=== PATIENT | female | born 2000 | race Caucasian/White ===

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

== ENCOUNTER 2020-12-10 01:56 | Emergency (ER) | payer SELFPAY ==
[~2020-12-10] VITALS: Ht 167.7 cm; Wt 102.1 kg
[2020-12-10] MEDS ORDERED: methylPREDNISolone 125 MG (Solu-MEDROL) VIAL IV STA (02:15)
[2020-12-10] MEDS ORDERED: diphenhydrAMINE 50 MG/ML INJ (BENADRYL) IV STA (02:15)
[2020-12-10] MEDS ORDERED: FAMOTIDINE 20MG/2ML IV (PEPCID) IV STA (02:15)
--- NOTE | 2020-12-10 02:24 | ED General ---
General Stated Complaint: ALLERGIC RXN,TROUBLE BREATHING Source of Information: Patient, Family (MOM) History of Present Illness Date Seen by Provider: Dec 10, 2020 Time Seen by Provider: 02:08 Initial Comments PT ARRIVES VIA POV FROM HOME WITH MOM PT STATES SHE HAS BEEN HAVING HIVES SINCE Monday12/08/20 WENT TO [facility] Monday AND WAS PRESCRIBED STEROIDS, BUT PT DID NOT TAKE THEM, BECAUSE SHE KNEW THEY WOULD KEEP HER AWAKE STATES SHE TOOK 2 BENADRYL YESTERDAY, BUT VOMITED THEM UP--STATES IT FELT LIKE SOMETHING WAS IN HER THROAT, WAS NOT ACTUALLY NAUSEATED. SHE TOOK 2 BENADRYL AT 0145, THEN CAME HERE IS FEELING SHORT OF BREATH, BUT PT IS HYPERVENTILATING AND ADMITS TO HAVING "SEVERE ANXIETY" AND C/O TINGLING IN HER HANDS AND FEET HAD SOME SWELLING TO HER LOWER LIP, BUT IS BETTER NOW. NO HISTORY OF SIMILAR DENIES ANY NEW FOODS, MEDICATIONS, PRODUCTS OR EXPOSURES DENIES ANY NEW STRESSORS/INCREASED ANXIETY PRIOR TO ONSET OF HIVES. PCP: KRISTIE DESIR TORCHIA Allergies and Home Medications Allergies Uncoded Allergies: UNKNOWN ABX (Allergy, Intermediate, 01/08/15) Patient Home Medication List Home Medication List Reviewed: Yes Review of Systems Review of Systems Constitutional: no symptoms reported EENTM: see HPI Respiratory: see HPI Cardiovascular: no symptoms reported Gastrointestinal: see HPI Genitourinary: no symptoms reported Musculoskeletal: no symptoms reported Skin: see HPI, pruritus, rash Psychiatric/Neurological: See HPI, Anxiety, Paresthesia Hematologic/Lymphatic: No Symptoms Reported Immunological/Allergic: no symptoms reported Past [place]-Cimplp-Nbwtla Hx Seasonal Allergies Seasonal Allergies: No Past Medical History Surgeries: Yes Adenoidectomy, Tonsillectomy Respiratory: No Cardiac: No Neurological: No Female Reproductive Disorders: Denies Genitourinary: No Gastrointestinal: No Musculoskeletal: No Endocrine: No HEENT: Yes (S/P T&A) Tonsilitis Cancer: No Psychosocial: Yes Anxiety Integumentary: No Blood Disorders: No Physical Exam Vital Signs Vital Signs - First Documented 12/10/20 02:05 Temp 36.6 Pulse 93 Resp 35 B/P (MAP) 117/76 (90) Pulse Ox 100 O2 Delivery Room Air Capillary Refill : Height, Weight, BMI Height: 5'6.00" Weight: 160lbs. 0.0oz. 72.733153bx; 25.8 BMI Method:Stated General Appearance: WD/WN, Anxious HEENT: PERRL/EOMI, TMs Normal, Normal ENT Inspection, Pharynx Normal, Other (MILD SWELLING OF LOWER LIP. NO INTRAORAL SWELLING OR LESIONS) Neck: Normal Inspection Respiratory: Normal Breath Sounds, No Accessory Muscle Use, Other (HYPERVENTILATING, BUT SMILING. ) Cardiovascular: Regular Rate, Rhythm, No Edema, No JVD, No Murmur, Normal Peripheral Pulses Gastrointestinal: Soft Extremity: Normal Inspection, No Pedal Edema Neurologic/Psychiatric: Alert, Oriented x3, No Motor/Sensory Deficits, reel slitter II- XII Norm as Tested, Other (ANXIOUS) Skin: Warm/Dry, Rash (PATCHY URTICARIA SCATTERED OVER MOST OF BODY INCLUDING SCALP, PALMS AND SOLES. ) Progress/Results/Core Measures Suspected Sepsis SIRS Temperature: Pulse: Respiratory Rate: Blood Pressure / Mean: Results/Orders My Orders Orders - OLIVIA FUENTES DO Ed Iv/Invasive Line Start (12/10/20 02:15) Monitor-Rhythm Ecg Trace Only (12/10/20 02:15) Diphenhydramine Injection (Benadryl Inje (12/10/20 02:15) Methylprednisolone Sod Succ (Solu-Medrol (12/10/20 02:15) Famotidine Injection (Pepcid Injection) (12/10/20 02:15) Vital Signs/I&O 12/10/20 02:05 Temp 36.6 Pulse 93 Resp 35 B/P (MAP) 117/76 (90) Pulse Ox 100 O2 Delivery Room Air Capillary Refill : Progress Note : Progress Note GIVEN SOLU-MEDROL, BENADRYL AND PEPCID WITH IMPROVEMENT IN SYMPTOMS PT IS NO LONGER HYPERVENTILATING, PT IS RESTING QUIETLY HIVES ARE FADING AND ITCHING HAS RESOLVED NO DETERIORATION IN PT'S CONDITION Departure Impression Primary Impression: Hives of unknown origin Disposition: 01 HOME, SELF-CARE Condition: Improved Departure-Patient Inst. Decision time for Depature: 03:20 Referrals: DEANN ALVARADO MD (PCP/Family) Primary Care Physician [facility] Patient Instructions: Hives (DC) Add. Discharge Instructions: LOTS OF CLEAR LIQUIDS TAKE BENADRYL 50 MG EVERY 4 HOURS NEEDED YOU MAY TAKE TYLENOL AND MOTRIN NEEDED FOR DISCOMFORT TAKE PREDNISONE PRESCRIBED FOLLOW UP WITH [facility] TOMORROW IF NO BETTER, RETURN TO ER IF WORSE OLIVIA FUENTES DO Dec 10, 2020 02:23
[2020-12-10 03:35] VITALS: BP 117/77
== END 2020-12-10 03:35 | disposition home or self-care (01) ==
LOC: EDUNIT# 01:56 → ER 01:58
DX: L50.9 Urticaria, unspecified (principal)
CPT/HCPCS: 93041

== ENCOUNTER → 2022-12-29 | Outpatient (CLI) | payer OTHER ==
--- NOTE | 2022-12-29 10:29 | Diagnostic Imaging Report ---
Clinical Indication: Patient having new onset headaches. Patient is 20 weeks . Exam: MRI of the brain performed without IV contrast. Sequences include axial DWI, ADC map, axial T1, axial T2, axial FLAIR, coronal gradient echo, and sagittal T1. Comparison: Head CT without contrast dated 01/08/2015. Findings: There is motion artifact limiting evaluation of the brain parenchyma. 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 Otherwise, there is no evidence of acute cerebral infarct, intracranial hemorrhage, or gross mass effect. The brain parenchymal volume appears appropriate for patient's age. There is normal alexis-white matter distinction. There is no significant midline shift or herniation. Visualized [place] vascular structures are unremarkable. The pituitary gland, sella, and suprasellar regions are unremarkable as visualized. There is no evidence of hydrocephalus. The basal cisterns are unremarkable. The skull, extracranial soft tissue, and orbits are unremarkable. There is mild mucosal thickening involving both maxillary sinuses. Temporal bones show no significant abnormality. IMPRESSION: 1: There is no evidence of acute intracranial process. 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 Nonemergent MRI of the pineal gland with and without contrast is suggested for further evaluation. 3: The brain parenchyma is otherwise unremarkable. 4: There is mild paranasal sinus disease. Dictated by: Dictated on workstation # [id number]
== END ==
LOC: RAD 09:14
PROVIDERS: ATTEND Family Medicine
DX: O99.282 Endocrine, nutritional and metabolic diseases complicating pregnancy, second trimester (principal); O99.512 Diseases of the respiratory system complicating pregnancy, second trimester; O26.892 Other specified pregnancy related conditions, second trimester; Z3A.21 21 weeks gestation of pregnancy; R51.9 Headache, unspecified; R20.2 Paresthesia of skin; J32.9 Chronic sinusitis, unspecified
CPT/HCPCS: 70551

== ENCOUNTER 2023-02-23 16:41 | Outpatient (CLI) | payer OTHER ==
[~2023-02-23] VITALS: Ht 165.1 cm; Wt 113.8 kg
[2023-02-23 17:02] VITALS: BP 119/75
[2023-02-23] MEDS ORDERED: PNV-9 PO (17:20)
[2023-02-23] MEDS ORDERED: FLUO10CA29 PO (17:21)
[2023-02-23 17:32] LABS: CLARITY,URINE CLEAR; COLOR,URINE YELLOW
[2023-02-23 17:33] LABS: BACTERIA,URINE TRACE /HPF; BILIRUBIN,URINE NEGATIVE (NEGATIVE); GLUCOSE, URINE (UA) NEGATIVE (NEGATIVE); KETONES,URINE NEGATIVE (NEGATIVE); LEUKOCYTE ESTERASE ,URINE NEGATIVE (NEGATIVE); NITRITE,URINE NEGATIVE (NEGATIVE); PROTEIN,URINE NEGATIVE (NEGATIVE); WBC,URINE RARE /HPF
--- NOTE | 2023-02-24 08:03 | Physician Query-Final Dx ---
ROBERTO,02/24/23 0803: Clinic Account Progress/Dx Physician Query: Please give diagnosis Please include # weeks gestation Date of Service Feb 23, 2023 at 16:41 BAMBI STACK MD 02/24/23 1715: Clinic Account Progress/Dx DIAGNOSIS: Diagnosis Pelvic pressure in 30 weeks gestation ROBERTO,AprFeb 24, 2023 08:03 BAMBI STACK MD Feb 24, 2023 17:15
== END 2023-02-23 18:24 ==
LOC: WSo 16:41 → LDRP 17:10 → WSo 18:24
PROVIDERS: ATTEND Family Medicine
DX: O99.891 Other specified diseases and conditions complicating pregnancy (principal); R10.2 Pelvic and perineal pain; Z3A.30 30 weeks gestation of pregnancy
CPT/HCPCS: 81000; G0463; 99213